=== PATIENT | female | born 1960 | race Caucasian/White ===

== ENCOUNTER 2020-05-18 12:29 | Inpatient (IN) | payer OTHER ==
[2020-05-18] MEDS: ALBUTEROL SO4 2.5/IPRATROPIUM 0.5 INH SOL 3 ML VIAL.NEB. NEB SCH ×4 (13:05→13:47)
[2020-05-18] MEDS ORDERED: DEXAMETHASONE SOD PHOSPHATE 10 MG/1 ML VIAL IVPUSH ONE (13:12)
[2020-05-18] MEDS ORDERED: DEXAMETHASONE SOD PHOSPHATE 4 MG/1 ML VIAL IVPUSH ONE (13:16)
[2020-05-18] MEDS ORDERED: DEXAMETHASONE SOD PHOSPHATE 10 MG/1 ML VIAL ONE (13:27)
[2020-05-18 13:28] LABS: BASO % 0.5 % (0-2.0); EOS % 0.6 % (0-4.5); HEMATOCRIT 32.9 % (32.4-45.2); HEMOGLOBIN 10.4 GM/dL (10.7-15.3); MCH 29.6 pg (25.7-33.7); MCHC 31.5 g/dl (32.0-36.0); MEAN PLT VOLUME 8.9 fl (7.5-11.1); MONO % 5.3 % (3.8-10.2); NEUT % 84.6 % (42.8-82.8); PLATELET COUNT 220 K/MM3 (134-434); RDW 15.7 % (11.6-15.6); WHITE BLOOD COUNT 5.6 K/mm3 (4.0-10.0)
[2020-05-18 13:54] LABS: CHLORIDE 103 mmol/L (98-107); SODIUM 141 mmol/L (136-145)
[2020-05-18 13:57] LABS: ALBUMIN 3.4 g/dl (3.4-5.0); BLOOD UREA NITROGEN 96.9 mg/dL (7-18); CALCIUM 8.4 mg/dL (8.5-10.1); CO2 25 mmol/L (21-32); GLUCOSE,RANDOM 107 mg/dL (74-106)
[2020-05-18 13:59] LABS: ANION GAP 13 MMOL/L (8-16); POTASSIUM 6.6 mmol/L (3.5-5.1)
[2020-05-18 14:00] LABS: SGOT/AST 26 U/L (15-37); SGPT/ALT 25 U/L (13-61)
[2020-05-18 14:02] LABS: BILIRUBIN,TOTAL 0.5 mg/dL (0.2-1); LDH 312 U/L (84-246); TOT PROT 6.9 g/dl (6.4-8.2)
[2020-05-18 14:03] LABS: ALK PHOS 154 U/L (45-117)
[2020-05-18 14:08] LABS: CREATININE 10.3 mg/dL (0.55-1.3)
[2020-05-18 15:26] LABS: INR 1.03 (0.83-1.09); PROTHROMBIN TIME (PATIENT) 12.4 SEC (9.7-13.0)
[2020-05-18 15:29] LABS: ACTIVATED PTT 30.5 SECONDS (25.2-36.5)
[2020-05-18] MEDS ORDERED: SODIUM CHLORIDE 250 ML IV PRN (15:45)
[2020-05-18 15:46] LABS: POTASSIUM 6.1 mmol/L (3.5-5.1)
[2020-05-18] MEDS ORDERED: INSULIN REGULAR HUMAN 100 UNITS/ML *VIAL SQ ONE (15:47)
[2020-05-18] MEDS ORDERED: CALCIUM GLUCONATE 10% - 1,000 MG/10 ML VIAL IVPB ONE (15:47)
[2020-05-18] MEDS ORDERED: DEXTROSE 50%-WATER - 25 GM/50 ML VIAL IVPUSH ONE (15:48)
[2020-05-18] MEDS ORDERED: CALCIUM GLUC IN NACL, ISO-OSM 1 GM/50 ML BAG IVPB ONE (15:56)
[2020-05-18] MEDS ORDERED: DEXTROSE 50%-WATER 25 GM/50 ML DISP.SYRIN ONE (15:57)
[2020-05-18] MEDS ORDERED: ALBUTEROL SO4 HFA INHALER IH PRN (19:05)
[2020-05-18] MEDS ORDERED: ACETAMINOPHEN 325 MG TABLET (FP) PO PRN (19:06)
[2020-05-18] MEDS: BUDESONIDE/FORMETEROL FUMARATE 80/4.5 mcg INHALER IH SCH (23:12)
[2020-05-18] MEDS: HEPARIN NA (PORCINE) 5,000 UNITS/ML 1ML VIAL SQ SCH (23:18)
[2020-05-19] MEDS: ISOSORBIDE MONONITRATE 60 MG TAB.SR.24H (FP) PO SCH ×3 (01:54→21:34)
[2020-05-19] MEDS: ATORVASTATIN CA 40 MG TABLET (FP) PO SCH ×2 (01:54→21:34)
[2020-05-19 04:55] VITALS: BMI 21.7
[2020-05-19] MEDS: HEPARIN NA (PORCINE) 5,000 UNITS/ML 1ML VIAL SQ SCH ×3 (06:13→21:33)
[2020-05-19 09:17] LABS: BASO % 0.2 % (0-2.0); EOS % 0.4 % (0-4.5); HEMOGLOBIN 9.4 GM/dL (10.7-15.3); LYMPH % 8.5 % (8-40); MCH 29.7 pg (25.7-33.7); MCHC 32.3 g/dl (32.0-36.0); MEAN CELL VOLUME 92.1 fl (80-96); MEAN PLT VOLUME 7.7 fl (7.5-11.1); MONO % 5.3 % (3.8-10.2); NEUT % 85.6 % (42.8-82.8); PLATELET COUNT 186 K/MM3 (134-434); RBC 3.15 M/mm3 (3.60-5.2); RDW 15.3 % (11.6-15.6); WHITE BLOOD COUNT 4.7 K/mm3 (4.0-10.0)
[2020-05-19 09:43] LABS: CHLORIDE 104 mmol/L (98-107); POTASSIUM 4.4 mmol/L (3.5-5.1); SODIUM 145 mmol/L (136-145)
[2020-05-19] MEDS: DEXAMETHASONE 4 MG TABLET (FP) PO SCH (09:46)
[2020-05-19] MEDS: PANTOPRAZOLE 40 MG TABLET PO SCH (09:47)
[2020-05-19] MEDS: ASCORBIC ACID 500 MG TABLET (FP) PO SCH (09:47)
[2020-05-19] MEDS: amLODIPine BESYLATE 10 MG TABLET (FP) PO SCH (09:47)
[2020-05-19] MEDS: NICOTINE 21 MG/24 HOURS TOPICAL PATCH TD SCH (09:47)
[2020-05-19] MEDS ORDERED: PATIENT'S OWN MEDICATION (NON-FORMULARY) (Ascorbate Calcium [Vitamin C] 500 MG Tablet) PO SCH (10:00)
[2020-05-19] MEDS: FOLIC ACID 1 MG TABLET (FP) PO SCH (10:10)
[2020-05-19] MEDS: BUDESONIDE/FORMETEROL FUMARATE 80/4.5 mcg INHALER IH SCH ×2 (10:10→21:34)
[2020-05-19 10:35] LABS: CALCIUM 7.8 mg/dL (8.5-10.1)
[2020-05-19 10:36] LABS: CO2 29 mmol/L (21-32); GLUCOSE,RANDOM 83 mg/dL (74-106); MAGNESIUM 2.5 mg/dL (1.8-2.4)
[2020-05-19 10:39] LABS: PHOSPHOROUS 5.8 mg/dL (2.5-4.9); SGOT/AST 16 U/L (15-37); SGPT/ALT 22 U/L (13-61)
[2020-05-19 10:41] LABS: BILIRUBIN,TOTAL 0.6 mg/dL (0.2-1)
[2020-05-19 10:52] LABS: ALK PHOS 123 U/L (45-117); ANION GAP 12 MMOL/L (8-16); BLOOD UREA NITROGEN 54.9 mg/dL (7-18)
[2020-05-19 11:35] LABS: CREATININE 7.5 mg/dL (0.55-1.3)
[2020-05-19 12:04] LABS: VENOUS BASE EXCESS 4.8 mmol/L (-2-2); VENOUS PCO2 46.2 mmHg (38-52)
[2020-05-19 12:05] LABS: VENOUS PH 7.428 (7.310-7.410)
[2020-05-19 12:06] LABS: VENOUS O2 SATURATION 99.3 % (70-80)
[2020-05-19] MEDS ORDERED: SODIUM CHLORIDE 250 ML IV PRN (12:41)
[2020-05-19] MEDS: CHOLECALCIFEROL (VIT D3) 5000 UNITS (125 MCG) CAP PO SCH (15:22)
[2020-05-20] MEDS: HEPARIN NA (PORCINE) 5,000 UNITS/ML 1ML VIAL SQ SCH ×3 (06:28→21:56)
[2020-05-20 09:44] LABS: HEMATOCRIT 36.1 % (32.4-45.2); HEMOGLOBIN 11.3 GM/dL (10.7-15.3); MCH 29.6 pg (25.7-33.7); MCHC 31.3 g/dl (32.0-36.0); MEAN CELL VOLUME 94.6 fl (80-96); MEAN PLT VOLUME 8.2 fl (7.5-11.1); PLATELET COUNT 216 K/MM3 (134-434); RBC 3.81 M/mm3 (3.60-5.2); RDW 15.4 % (11.6-15.6); WHITE BLOOD COUNT 5.6 K/mm3 (4.0-10.0)
[2020-05-20 10:06] LABS: POTASSIUM 4.3 mmol/L (3.5-5.1)
[2020-05-20 10:12] LABS: ALBUMIN 3.6 g/dl (3.4-5.0); BLOOD UREA NITROGEN 43.1 mg/dL (7-18); CALCIUM 8.4 mg/dL (8.5-10.1)
[2020-05-20 10:16] LABS: CREATININE 5.8 mg/dL (0.55-1.3)
[2020-05-20 10:17] LABS: BILIRUBIN,TOTAL 0.6 mg/dL (0.2-1); TOT PROT 7.4 g/dl (6.4-8.2)
[2020-05-20 11:07] LABS: HEP B CORE AB, TOT Negative (Negative)
[2020-05-20] MEDS ORDERED: PT OWN MED DRAWER 7, Y5N ONE (11:27)
[2020-05-20] MEDS: CHOLECALCIFEROL (VIT D3) 5000 UNITS (125 MCG) CAP PO SCH (11:31)
[2020-05-20] MEDS: ISOSORBIDE MONONITRATE 60 MG TAB.SR.24H (FP) PO SCH ×2 (11:31→21:56)
[2020-05-20] MEDS: NICOTINE 21 MG/24 HOURS TOPICAL PATCH TD SCH (11:31)
[2020-05-20] MEDS: ASCORBIC ACID 500 MG TABLET (FP) PO SCH (11:31)
[2020-05-20] MEDS: BUDESONIDE/FORMETEROL FUMARATE 80/4.5 mcg INHALER IH SCH ×2 (11:32→21:58)
[2020-05-20] MEDS: DEXAMETHASONE 4 MG TABLET (FP) PO SCH (11:32)
[2020-05-20] MEDS: PANTOPRAZOLE 40 MG TABLET PO SCH (11:32)
[2020-05-20] MEDS: FOLIC ACID 1 MG TABLET (FP) PO SCH (11:32)
[2020-05-20] MEDS: amLODIPine BESYLATE 10 MG TABLET (FP) PO SCH (11:32)
[2020-05-20] MEDS: ATORVASTATIN CA 40 MG TABLET (FP) PO SCH (21:56)
[2020-05-21] MEDS: HEPARIN NA (PORCINE) 5,000 UNITS/ML 1ML VIAL SQ SCH ×3 (06:10→21:40)
[2020-05-21 09:18] LABS: HEMATOCRIT 31.7 % (32.4-45.2); HEMOGLOBIN 10.2 GM/dL (10.7-15.3); MCH 29.9 pg (25.7-33.7); MCHC 32.2 g/dl (32.0-36.0); MEAN PLT VOLUME 8.1 fl (7.5-11.1); PLATELET COUNT 202 K/MM3 (134-434); RBC 3.41 M/mm3 (3.60-5.2); RDW 14.9 % (11.6-15.6); WHITE BLOOD COUNT 4.6 K/mm3 (4.0-10.0)
[2020-05-21 09:47] LABS: CHLORIDE 101 mmol/L (98-107); POTASSIUM 4.5 mmol/L (3.5-5.1); SODIUM 140 mmol/L (136-145)
[2020-05-21 09:55] LABS: CALCIUM 8.7 mg/dL (8.5-10.1); GLUCOSE,RANDOM 87 mg/dL (74-106)
[2020-05-21 10:00] LABS: SGOT/AST 11 U/L (15-37); SGPT/ALT 19 U/L (13-61)
[2020-05-21 10:01] LABS: BILIRUBIN,TOTAL 0.4 mg/dL (0.2-1); TOT PROT 6.1 g/dl (6.4-8.2)
[2020-05-21 10:03] LABS: ALK PHOS 113 U/L (45-117); ANION GAP 11 MMOL/L (8-16); BLOOD UREA NITROGEN 69.3 mg/dL (7-18); CO2 28 mmol/L (21-32); CREATININE 7.6 mg/dL (0.55-1.3)
[2020-05-21] MEDS ORDERED: HEPARIN NA (PORCINE) 5,000 UNITS/ML 1ML VIAL IVPUSH ONE (13:00)
[2020-05-21] MEDS ORDERED: SODIUM CHLORIDE 250 ML IV PRN (13:01)
[2020-05-21] MEDS: amLODIPine BESYLATE 10 MG TABLET (FP) PO SCH (13:56)
[2020-05-21] MEDS: ASCORBIC ACID 500 MG TABLET (FP) PO SCH (13:56)
[2020-05-21] MEDS: ISOSORBIDE MONONITRATE 60 MG TAB.SR.24H (FP) PO SCH ×2 (13:56→21:40)
[2020-05-21] MEDS: PANTOPRAZOLE 40 MG TABLET PO SCH (13:56)
[2020-05-21] MEDS: NICOTINE 21 MG/24 HOURS TOPICAL PATCH TD SCH (13:57)
[2020-05-21] MEDS: FOLIC ACID 1 MG TABLET (FP) PO SCH (13:57)
[2020-05-21] MEDS: DEXAMETHASONE 4 MG TABLET (FP) PO SCH (13:57)
[2020-05-21] MEDS: BUDESONIDE/FORMETEROL FUMARATE 80/4.5 mcg INHALER IH SCH ×2 (13:58→21:40)
[2020-05-21] MEDS: CHOLECALCIFEROL (VIT D3) 5000 UNITS (125 MCG) CAP PO SCH (13:59)
[2020-05-21] MEDS: ATORVASTATIN CA 40 MG TABLET (FP) PO SCH (21:40)
[2020-05-22] MEDS: HEPARIN NA (PORCINE) 5,000 UNITS/ML 1ML VIAL SQ SCH ×3 (06:08→21:51)
[2020-05-22] MEDS ORDERED: PT OWN MED DRAWER 7, Y5N ONE (09:06)
[2020-05-22] MEDS: CHOLECALCIFEROL (VIT D3) 5000 UNITS (125 MCG) CAP PO SCH (10:01)
[2020-05-22] MEDS: FOLIC ACID 1 MG TABLET (FP) PO SCH (10:02)
[2020-05-22] MEDS: ISOSORBIDE MONONITRATE 60 MG TAB.SR.24H (FP) PO SCH ×2 (10:02→21:51)
[2020-05-22] MEDS: BUDESONIDE/FORMETEROL FUMARATE 80/4.5 mcg INHALER IH SCH ×2 (10:02→21:53)
[2020-05-22] MEDS: NICOTINE 21 MG/24 HOURS TOPICAL PATCH TD SCH (10:02)
[2020-05-22] MEDS: amLODIPine BESYLATE 10 MG TABLET (FP) PO SCH (10:02)
[2020-05-22] MEDS: DEXAMETHASONE 4 MG TABLET (FP) PO SCH (10:02)
[2020-05-22] MEDS: ASCORBIC ACID 500 MG TABLET (FP) PO SCH (10:02)
[2020-05-22] MEDS: PANTOPRAZOLE 40 MG TABLET PO SCH (10:02)
[2020-05-22] MEDS: ATORVASTATIN CA 40 MG TABLET (FP) PO SCH (21:51)
[2020-05-23] MEDS: HEPARIN NA (PORCINE) 5,000 UNITS/ML 1ML VIAL SQ SCH ×3 (05:58→22:11)
[2020-05-23] MEDS ORDERED: PT OWN MED DRAWER 7, Y5N ONE (11:20)
[2020-05-23] MEDS: PANTOPRAZOLE 40 MG TABLET PO SCH (11:26)
[2020-05-23] MEDS: ISOSORBIDE MONONITRATE 60 MG TAB.SR.24H (FP) PO SCH ×2 (11:26→22:11)
[2020-05-23] MEDS: ASCORBIC ACID 500 MG TABLET (FP) PO SCH (11:26)
[2020-05-23] MEDS: amLODIPine BESYLATE 10 MG TABLET (FP) PO SCH (11:26)
[2020-05-23] MEDS: FOLIC ACID 1 MG TABLET (FP) PO SCH (11:27)
[2020-05-23] MEDS: CHOLECALCIFEROL (VIT D3) 5000 UNITS (125 MCG) CAP PO SCH (11:27)
[2020-05-23] MEDS: NICOTINE 21 MG/24 HOURS TOPICAL PATCH TD SCH (11:28)
[2020-05-23] MEDS: DEXAMETHASONE 4 MG TABLET (FP) PO SCH (11:29)
[2020-05-23] MEDS: BUDESONIDE/FORMETEROL FUMARATE 80/4.5 mcg INHALER IH SCH ×2 (11:30→22:11)
[2020-05-23] MEDS ORDERED: MELATONIN 5 MG TABLETS PO ONE (20:35)
[2020-05-23] MEDS ORDERED: SODIUM CHLORIDE 250 ML IV PRN (20:48)
[2020-05-23] MEDS: ATORVASTATIN CA 40 MG TABLET (FP) PO SCH (22:11)
[2020-05-24] MEDS: HEPARIN NA (PORCINE) 5,000 UNITS/ML 1ML VIAL SQ SCH ×3 (06:01→21:57)
[2020-05-24] MEDS: BUDESONIDE/FORMETEROL FUMARATE 80/4.5 mcg INHALER IH SCH ×2 (09:17→22:03)
[2020-05-24] MEDS: NICOTINE 21 MG/24 HOURS TOPICAL PATCH TD SCH (09:17)
[2020-05-24] MEDS ORDERED: PT OWN MED DRAWER 7, Y5N ONE (11:30)
[2020-05-24] MEDS: ASCORBIC ACID 500 MG TABLET (FP) PO SCH (11:49)
[2020-05-24] MEDS: PANTOPRAZOLE 40 MG TABLET PO SCH (11:50)
[2020-05-24] MEDS: CHOLECALCIFEROL (VIT D3) 5000 UNITS (125 MCG) CAP PO SCH (11:50)
[2020-05-24] MEDS: ISOSORBIDE MONONITRATE 60 MG TAB.SR.24H (FP) PO SCH ×2 (11:50→21:56)
[2020-05-24] MEDS: amLODIPine BESYLATE 10 MG TABLET (FP) PO SCH (11:50)
[2020-05-24] MEDS: FOLIC ACID 1 MG TABLET (FP) PO SCH (11:51)
[2020-05-24] MEDS: DEXAMETHASONE 4 MG TABLET (FP) PO SCH (11:51)
[2020-05-24] MEDS: ATORVASTATIN CA 40 MG TABLET (FP) PO SCH (21:56)
[2020-05-25] MEDS ORDERED: LORazepam 0.5 MG TABLET PO ONE (03:05)
[2020-05-25] MEDS: HEPARIN NA (PORCINE) 5,000 UNITS/ML 1ML VIAL SQ SCH ×2 (05:43→14:35)
[2020-05-25 09:25] LABS: BASO % 0.3 % (0-2.0); EOS % 0.6 % (0-4.5); HEMATOCRIT 28.3 % (32.4-45.2); HEMOGLOBIN 9.4 GM/dL (10.7-15.3); LYMPH % 11.8 % (8-40); MCHC 33.1 g/dl (32.0-36.0); MEAN CELL VOLUME 90.6 fl (80-96); MEAN PLT VOLUME 8.3 fl (7.5-11.1); NEUT % 81.3 % (42.8-82.8); PLATELET COUNT 201 K/MM3 (134-434); RBC 3.12 M/mm3 (3.60-5.2); RDW 14.6 % (11.6-15.6); WHITE BLOOD COUNT 6.6 K/mm3 (4.0-10.0)
[2020-05-25] MEDS ORDERED: PT OWN MED DRAWER 7, Y5N ONE (09:32)
[2020-05-25 09:46] LABS: POTASSIUM 3.8 mmol/L (3.5-5.1)
[2020-05-25] MEDS: ASCORBIC ACID 500 MG TABLET (FP) PO SCH (09:49)
[2020-05-25] MEDS: BUDESONIDE/FORMETEROL FUMARATE 80/4.5 mcg INHALER IH SCH ×2 (09:49→21:46)
[2020-05-25] MEDS: DEXAMETHASONE 4 MG TABLET (FP) PO SCH (09:49)
[2020-05-25] MEDS: amLODIPine BESYLATE 10 MG TABLET (FP) PO SCH (09:49)
[2020-05-25] MEDS: FOLIC ACID 1 MG TABLET (FP) PO SCH (09:49)
[2020-05-25] MEDS: ISOSORBIDE MONONITRATE 60 MG TAB.SR.24H (FP) PO SCH ×2 (09:49→21:46)
[2020-05-25] MEDS: PANTOPRAZOLE 40 MG TABLET PO SCH (09:49)
[2020-05-25] MEDS: NICOTINE 21 MG/24 HOURS TOPICAL PATCH TD SCH (09:49)
[2020-05-25] MEDS: CHOLECALCIFEROL (VIT D3) 5000 UNITS (125 MCG) CAP PO SCH (09:50)
[2020-05-25 09:58] LABS: BLOOD UREA NITROGEN 60.7 mg/dL (7-18); CALCIUM 8.2 mg/dL (8.5-10.1)
[2020-05-25 10:01] LABS: CREATININE 5.6 mg/dL (0.55-1.3)
[2020-05-25] MEDS: ATORVASTATIN CA 40 MG TABLET (FP) PO SCH (21:46)
[2020-05-26] MEDS ORDERED: PT OWN MED DRAWER 7, Y5N ONE (09:56)
[2020-05-26] MEDS: PANTOPRAZOLE 40 MG TABLET PO SCH (10:09)
[2020-05-26] MEDS: amLODIPine BESYLATE 10 MG TABLET (FP) PO SCH (10:09)
[2020-05-26] MEDS: NICOTINE 21 MG/24 HOURS TOPICAL PATCH TD SCH (10:09)
[2020-05-26] MEDS: ISOSORBIDE MONONITRATE 60 MG TAB.SR.24H (FP) PO SCH (10:09)
[2020-05-26] MEDS: DEXAMETHASONE 4 MG TABLET (FP) PO SCH (10:09)
[2020-05-26] MEDS: ASCORBIC ACID 500 MG TABLET (FP) PO SCH (10:09)
[2020-05-26] MEDS: FOLIC ACID 1 MG TABLET (FP) PO SCH (10:10)
[2020-05-26] MEDS: CHOLECALCIFEROL (VIT D3) 5000 UNITS (125 MCG) CAP PO SCH (10:10)
[2020-05-26] MEDS: BUDESONIDE/FORMETEROL FUMARATE 80/4.5 mcg INHALER IH SCH (10:10)
[2020-05-26 14:42] VITALS: TEMP 97.8
[2020-05-26] MEDS ORDERED: SODIUM CHLORIDE 250 ML IV PRN (15:02)
[2020-05-26] MEDS ORDERED: EPOETIN ALFA-EPBX 3,000 UNIT/ML VIAL SQ ONE (15:15)
[2020-05-26] MEDS ORDERED: HEPARIN NA (PORCINE) 5,000 UNITS/ML 1ML VIAL IVPUSH ONE (15:15)
[2020-05-26 16:14] VITALS: BP 155/72; PULSE 81
== END 2020-05-26 18:16 | DRG 177 ==
LOC: JER 12:29 → JERBED 14:12 → J5S 22:09
PROVIDERS: ADMIT Internal Medicine
PROC: 5A1D70Z Performance of Urinary Filtration, Intermittent, Less than 6 Hours Per Day (ICD-10-PCS; principal; 2020-05-18)
DX: U07.1 COVID-19 (principal); N18.6 End stage renal disease; J96.01 Acute respiratory failure with hypoxia; J12.82 Pneumonia due to coronavirus disease 2019; I13.2 Hypertensive heart and chronic kidney disease with heart failure and with stage 5 chronic kidney disease, or end stage renal disease; J98.11 Atelectasis; J44.9 Chronic obstructive pulmonary disease, unspecified; Z99.81 Dependence on supplemental oxygen; E11.22 Type 2 diabetes mellitus with diabetic chronic kidney disease; I50.9 Heart failure, unspecified; Z99.2 Dependence on renal dialysis; E78.5 Hyperlipidemia, unspecified; E87.5 Hyperkalemia; D63.8 Anemia in other chronic diseases classified elsewhere; F41.9 Anxiety disorder, unspecified; E01.0 Iodine-deficiency related diffuse (endemic) goiter; R59.0 Localized enlarged lymph nodes; I25.10 Atherosclerotic heart disease of native coronary artery without angina pectoris
CPT/HCPCS: 36415; 71045-TC-FY; 71250-TC; 80048; 80053; 82550; 82728; 82803; 82962; 83615; 83735; 83880; 84100; 84132; 84439; 84443; 84484; 85025; 85027; 85379; 85610; 85730; 86140; 86704; 86706; 86707; 86708; 86709; 86769; 86803; 87340; 93005; 93010; 97116-GP; 97161-GP; 99291; C9803; J1644; Q5106; U0003; U0005